=== PATIENT | male | born 1960 ===

== ENCOUNTER 2017-07-23 06:46 | Day surgery (SDC) | payer BC ==
[~2017-07-23] VITALS: Ht 188 cm; Wt 137.6 kg
== END 2017-07-23 08:41 | disposition home or self-care (01) ==
LOC: ORSCSDS 06:46
PROVIDERS: Surgery
PROC: 0DBP8ZX Excision of Rectum, Via Natural or Artificial Opening Endoscopic, Diagnostic (ICD-10-PCS; principal; 2017-07-23 08:00)
DX: Z12.11 Encounter for screening for malignant neoplasm of colon (principal); K62.1 Rectal polyp; K64.8 Other hemorrhoids; Z86.010 Personal history of colon polyps; I10 Essential (primary) hypertension
CPT/HCPCS: 88305; J0330; J1980; J2405